=== PATIENT | male | born 1980 | race Hispanic/Latino ===

== ENCOUNTER 2019-02-10 20:50 | Emergency (ER) | payer SELFPAY ==
--- NOTE | 2019-02-10 21:53 | ER ---
Nurse's Notes [facility] Name: Rachid Jensen Age: 39 yrs Sex: Male : 1980 Arrival Date: 02/10/2019 Time: 20:56 Bed 7 Private MD: Diagnosis: Other otitis externa, left ear;Otitis media, unspecified, left ear Presentation: 02/10 21:01 Presenting complaint: states: His left ear hurts and it hurts when he swallows. ed1 Transition of care: patient was not received from another setting of care. Onset of symptoms was February 06, 2019. Risk Assessment: Do you want to hurt yourself or someone else? Patient reports no desire to harm self or others. Initial Sepsis Screen: Does the patient meet any 2 criteria? No. Patient's initial sepsis screen is negative. Does the patient have a suspected source of infection? No. Patient's initial sepsis screen is negative. Care prior to arrival: None. 21:01 Method Of Arrival: Ambulatory ed1 21:01 Acuity: LARA 4 ed1 Triage Assessment: 21:02 General: Appears in no apparent distress. Behavior is calm, cooperative. Pain: ed1 Complains of pain in left ear Pain currently is 9 out of 10 on a pain scale. EENT: Reports pain in left ear when swallowing. Historical: - Allergies: 21:02 No Known Allergies; ed1 - Home Meds: 21:02 metformin 500 mg Oral Tb24 1 tab once daily [Active]; Lisinopril Oral once daily ed1 [Active]; - PMHx: 21:02 Diabetes - NIDDM; Hypertension; ed1 - PSHx: 21:02 None; ed1 - Immunization history:: Adult Immunizations up to date. - Social history:: Smoking status: Patient/guardian denies using tobacco. - Ebola Screening: : Patient negative for fever greater than or equal to 101.5 degrees Fahrenheit, and additional compatible Ebola Virus Disease symptoms Patient denies exposure to infectious person Patient denies travel to an Ebola-affected area in the 21 days before illness onset No symptoms or risks identified at this time. Screenin:05 Abuse screen: Denies threats or abuse. Denies injuries from another. Nutritional cc3 screening: No deficits noted. Tuberculosis screening: No symptoms or risk factors identified. Fall Risk Ambulatory Aid- None/Bed Rest/Nurse Assist (0 pts). Gait- Normal/Bed Rest/Wheelchair (0 pts) Mental Status- Oriented to own ability (0 pts). Assessment: 21:05 General: Appears in no apparent distress. uncomfortable, Behavior is calm, cooperative, cc3 appropriate for age. Pain: Complains of pain in face and left cheek and left ear Quality of pain is described as aching, Pain began 1 week. Neuro: Level of Consciousness is awake, alert, obeys commands, Oriented to person, place, time, situation, Appropriate for age. Cardiovascular: Denies chest pain, Patient's skin is warm and dry. Respiratory: Airway is patent Respiratory effort is even, unlabored, Respiratory pattern is regular, symmetrical. GI: Abdomen is round non-distended. : No signs and/or symptoms were reported regarding the genitourinary system. EENT: Reports pain in face and left cheek and left ear. Derm: Skin is intact, is healthy with good turgor, Skin is dry, Skin is pink, warm \T\ dry. normal, Skin temperature is warm. Musculoskeletal: Circulation, motion, and sensation intact. Range of motion: intact in all extremities. 21:58 Reassessment: Patient appears in no apparent distress at this time. Patient and/or cc3 family updated on plan of care and expected duration. Pain level reassessed. Patient is alert, oriented x 3, equal unlabored respirations, skin warm/dry/pink. SCOTTY Roberts discharged the patient home with prescription given. No IV cannula in situ. Patient left ER vitally stable and ambulatory with his . Patient denies pain at this time. Patient states feeling better. Patient states symptoms have improved. Vital Signs: 21:02 BP 145 / 89; Pulse 73; Resp 18; Temp 98.2; Pulse Ox 97% on R/A; Weight 118.84 kg; ed1 Height 5 ft. 7 in. (170.18 cm); Pain 9/10; 21:02 Body Mass Index 41.03 (118.84 kg, 170.18 cm) ed1 ED Course: 20:56 Patient arrived in ED. mr 21:02 Triage completed. ed1 21:02 Arm band placed on right wrist. ed1 21:03 Hetal Roberts FNP-C is PHCP. kb 21:03 Alexander Wu MD is Attending Physician. kb 21:05 Milvia Lakhani is Primary Nurse. cc3 21:05 Patient has correct armband on for positive identification. Bed in low position. Call cc3 light in reach. Side rails up X 1. Pulse ox on. NIBP on. 21:17 CT completed. Patient moved to CT. Patient moved back from CT. nj 21:31 CT Head Brain wo Cont In Process Unspecified. EDMS 22:00 No provider procedures requiring assistance completed. Patient did not have IV access cc3 during this emergency room visit. Administered Medications: No medications were administered Outcome: 21:52 Discharge ordered by MD. kb 21:58 Patient left the ED. cc3 21:58 Discharged to home ambulatory, with family. cc3 21:58 Condition: stable 21:58 Discharge instructions given to patient, Instructed on discharge instructions, follow up and referral plans. medication usage, Demonstrated understanding of instructions, follow-up care, medications, Prescriptions given X 2. Signatures: Dispatcher [employer] EDMS Hetal Roberts, [employer]CH[employer]IC-Cely Batista Erika, RN RN ed1 Alfonso Petersen Charlene cc3
--- NOTE | 2019-02-10 21:53 | EDPHYS ---
Physician Documentation [facility] Name: Rachid Jensen Age: 39 yrs Sex: Male : 1980 Arrival Date: 02/10/2019 Time: 20:56 Bed 7 Private MD: ED Physician Alexander Wu HPI: 02/10 21:27 This 39 yrs old Male presents to ER via Ambulatory with complaints of Ear Pain.kb 21:27 The patient presents with pain, moderate, swelling. kb 21:28 The complaints affect the left ear. Onset: The symptoms/episode began/occurred 4 day(s) kb ago. Modifying factors: The symptoms are alleviated by nothing, the symptoms are aggravated by touching. Associated signs and symptoms: The patient has no apparent associated signs or symptoms. Severity of symptoms: At their worst the symptoms were moderate in the emergency department the symptoms are unchanged. The patient has not experienced similar symptoms in the past. The patient has not recently seen a physician. Pt c/o ear pain for 4 days. . Historical: - Allergies: 21:02 No Known Allergies; ed1 - Home Meds: 21:02 metformin 500 mg Oral Tb24 1 tab once daily [Active]; Lisinopril Oral once daily ed1 [Active]; - PMHx: 21:02 Diabetes - NIDDM; Hypertension; ed1 - PSHx: 21:02 None; ed1 - Immunization history:: Adult Immunizations up to date. - Social history:: Smoking status: Patient/guardian denies using tobacco. - Ebola Screening: : Patient negative for fever greater than or equal to 101.5 degrees Fahrenheit, and additional compatible Ebola Virus Disease symptoms Patient denies exposure to infectious person Patient denies travel to an Ebola-affected area in the 21 days before illness onset No symptoms or risks identified at this time. ROS: 21:29 Constitutional: Negative for fever, chills, and weight loss, Cardiovascular: Negative kb for chest pain, palpitations, and edema, Respiratory: Negative for shortness of breath, cough, wheezing, and pleuritic chest pain, Abdomen/GI: Negative for abdominal pain, nausea, vomiting, diarrhea, and constipation, MS/Extremity: Negative for injury and deformity, Neuro: Negative for headache, weakness, numbness, tingling, and seizure. 21:29 ENT: Positive for ear pain. 21:29 Skin: Positive for swelling, of the left cheek. Exam: 21:30 Constitutional: This is a well developed, well nourished patient who is awake, alert, kb and in no acute distress. Neck: Trachea midline, no thyromegaly or masses palpated, and no cervical lymphadenopathy. Supple, full range of motion without nuchal rigidity, or vertebral point tenderness. No Meningismus. Chest/axilla: Normal chest wall appearance and motion. Nontender with no deformity. No lesions are appreciated. Cardiovascular: Regular rate and rhythm with a normal S1 and S2. No gallops, murmurs, or rubs. Normal PMI, no JVD. No pulse deficits. Respiratory: Lungs have equal breath sounds bilaterally, clear to auscultation and percussion. No rales, rhonchi or wheezes noted. No increased work of breathing, no retractions or nasal flaring. Abdomen/GI: Soft, non-tender, with normal bowel sounds. No distension or tympany. No guarding or rebound. No evidence of tenderness throughout. Skin: Warm, dry with normal turgor. Normal color with no rashes, no lesions, and no evidence of cellulitis. MS/ Extremity: Pulses equal, no cyanosis. Neurovascular intact. Full, normal range of motion. Neuro: Awake and alert, GCS 15, oriented to person, place, time, and situation. Cranial nerves II-XII grossly intact. Motor strength 5/5 in all extremities. Sensory grossly intact. Cerebellar exam normal. Normal gait. 21:30 Head/face: Noted is no obvious of injury or deformity except swelling, that is moderate, of the left cheek, tenderness, that is moderate. 21:30 ENT: External ear(s): are unremarkable, Ear canal(s): purulent discharge, that is moderate, in the left canal, TM's: erythema. Vital Signs: 21:02 BP 145 / 89; Pulse 73; Resp 18; Temp 98.2; Pulse Ox 97% on R/A; Weight 118.84 kg; ed1 Height 5 ft. 7 in. (170.18 cm); Pain 9/10; 21:02 Body Mass Index 41.03 (118.84 kg, 170.18 cm) ed1 MDM: 21:05 Patient medically screened. kb 21:29 Data reviewed: vital signs, nurses notes. Data interpreted: Pulse oximetry: on room air kb is 97 %. Interpretation: normal. 21:51 Counseling: I had a detailed discussion with the patient and/or guardian regarding: the kb historical points, exam findings, and any diagnostic results supporting the discharge/admit diagnosis, radiology results, the need for outpatient follow up, a family practitioner, to return to the emergency department if symptoms worsen or persist or if there are any questions or concerns that arise at home. 02/10 21:12 Order name: CT Head Brain wo Cont kb Administered Medications: No medications were administered Disposition: 02/11 04:13 Co-signature as Attending Physician, Alexander Wu MD I agree with the assessment and tw4 plan of care. Disposition: 02/10/19 21:52 Discharged to Home. Impression: Other otitis externa, left ear, Otitis media, unspecified, left ear. - Condition is Stable. - Discharge Instructions: Ear Drops, Adult, Otitis Externa, [id number], Otitis Media, Adult, [id number]. - Prescriptions for Amoxicillin 875 mg Oral Tablet - take 1 tablet by ORAL route every 12 hours for 10 days; 20 tablet. Ciprodex 0.3- 0.1 % Otic Drops, Suspension - instill 4 drop by OTIC route every 12 hours for 7 days , for ears ONLY; 1 Container. - Medication Reconciliation Form, Thank You Letter, Antibiotic Education, Prescription Opioid Use form. - Follow up: Emergency Department; When: As needed; Reason: Worsening of condition. Follow up: Private Physician; When: 2 - 3 days; Reason: Recheck today's complaints, Continuance of care, Re-evaluation by your physician. Signatures: Dispatcher [employer] EDNH Hetal Roberts, Lazara Andrew RN RN ed1 Alexander Wu MD MD tw4 Milvia Lakhani cc3 Corrections: (The following items were deleted from the chart) 02/10 21:58 21:52 02/10/2019 21:52 Discharged to Home. Impression: Other otitis externa, left ear; cc3 Otitis media, unspecified, left ear. Condition is Stable. Forms are Medication Reconciliation Form, Thank You Letter, Antibiotic Education, Prescription Opioid Use. Follow up: Emergency Department; When: As needed; Reason: Worsening of condition. Follow up: Private Physician; When: 2 - 3 days; Reason: Recheck today's complaints, Continuance of care, Re-evaluation by your physician. kb
--- NOTE | 2019-02-11 11:36 | RAD REPORT ---
EXAM DESCRIPTION: CT - Head Brain Wo Cont - 02/11/2019 4:25 am CLINICAL HISTORY: 39 years Male, r/o mastoiditis TECHNIQUE: 5 mm axial images were obtained along with 3 mm reformatted coronal and sagittal images. This exam was performed according to our departmental dose-optimization program, which includes autom ated exposure control, adjustment of the mA and/or kV according to patient size and/or use of iterati ve reconstruction technique. COMPARISON: None. FINDINGS: No acute abnormal extracerebral fluid collections are demonstrated. The cortical sulci, ventricles, and cisterns are within normal limits. There are no areas of altered attenuation identified to suggest acute hemorrhage, infarction, or mass lesion. The visualized portions of the paranasal sinuses and mastoid air cells are clear. IMPRESSION: 1. Normal study. Electronically signed by: Matt Dixon MD 02/10/2019 9:37 PM CDT Due to temporary technical issues with the PACS/Fluency reporting system, reports are being signed by the in house radiologist as a courtesy to ensure prompt reporting. The interpreting radiologist is f ully responsible for the content of the report.
== END 2019-02-10 21:58 | disposition home or self-care (01) ==
LOC: ER 20:50
DX: H60.92 Unspecified otitis externa, left ear (principal); H66.92 Otitis media, unspecified, left ear; I10 Essential (primary) hypertension; E11.9 Type 2 diabetes mellitus without complications
CPT/HCPCS: 70450; 99284

== ENCOUNTER 2019-04-10 20:55 | Emergency (ER) | payer SELFPAY ==
[2019-04-10] MEDS ORDERED: cloNIDine HCl 0.1 MG TAB ONE (21:56)
[2019-04-10 22:08] LABS: Absolute Lymphocytes (CBC) 3.1 K/uL (0.7-4.9); Basophils % 0.6 % (0-1.3); Hematocrit 43.5 % (39.6-49.0); RBC Red Blood Cell Count 5.38 M/uL (4.33-5.43)
[2019-04-10 22:18] LABS: BUN Blood Urea Nitrogen 14 mg/dL (7-18); Bicarbonate 29 mmol/L (21-32); Glucose Level 158 mg/dL (74-106); Potassium 3.8 mmol/L (3.5-5.1); Sodium Level 140 mmol/L (136-145)
--- NOTE | 2019-04-10 22:27 | ER ---
Nurse's Notes [facility] Name: Rachid Jensen Age: 39 yrs Sex: Male : 1980 Arrival Date: 04/10/2019 Time: 20:56 Bed 17 Private MD: Diagnosis: Essential (primary) hypertension Presentation: 04/10 21:07 Presenting complaint: Patient states: Headache, head pressure that began about 2 hours lp1 ago; Patient states checking BP when he didn't feel good and BP of 185/111; Denies any chest pain, N/V. Transition of care: patient was not received from another setting of care. Onset of symptoms was April 10, 2019 at 19:00. Risk Assessment: Do you want to hurt yourself or someone else? Patient reports no desire to harm self or others. Initial Sepsis Screen: Does the patient meet any 2 criteria? No. Patient's initial sepsis screen is negative. Does the patient have a suspected source of infection? No. Patient's initial sepsis screen is negative. Care prior to arrival: None. 21:07 Method Of Arrival: Ambulatory lp1 21:07 Acuity: LARA 3 lp1 Triage Assessment: 21:05 General: Appears in no apparent distress. comfortable, Behavior is calm, cooperative, cc3 appropriate for age. Pain: Complains of pain in head Quality of pain is described as pressure. Historical: - Allergies: 21:10 No Known Allergies; lp1 - Home Meds: 21:10 lisinopril 25 mg Oral once daily [Active]; metformin 500 mg Oral Tb24 1 tab once daily lp1 [Active]; - PMHx: 21:10 Diabetes - NIDDM; Hypertension; lp1 - PSHx: 21:10 None; lp1 - Immunization history:: Adult Immunizations up to date. - Social history:: Smoking status: Patient/guardian denies using tobacco. - Ebola Screening: : No symptoms or risks identified at this time. Screenin:05 Abuse screen: Denies threats or abuse. Denies injuries from another. Nutritional cc3 screening: No deficits noted. Tuberculosis screening: No symptoms or risk factors identified. Fall Risk Ambulatory Aid- None/Bed Rest/Nurse Assist (0 pts). Gait- Normal/Bed Rest/Wheelchair (0 pts) Mental Status- Oriented to own ability (0 pts). Assessment: 21:05 General: Appears in no apparent distress. comfortable, Behavior is calm, cooperative, cc3 appropriate for age. Pain: Complains of pain in back of head Quality of pain is described as pressure. Neuro: Level of Consciousness is awake, alert, obeys commands, Oriented to person, place, time, situation, Appropriate for age. Cardiovascular: Denies chest pain, Capillary refill < 3 seconds Patient's skin is warm and dry. Respiratory: Airway is patent Respiratory effort is even, unlabored, Respiratory pattern is regular, symmetrical. GI: Abdomen is round non-distended. : No signs and/or symptoms were reported regarding the genitourinary system. EENT: No signs and/or symptoms were reported regarding the EENT system. Derm: Skin is intact, is healthy with good turgor, Skin is pink, warm \T\ dry. normal. Musculoskeletal: Circulation, motion, and sensation intact. Range of motion: intact in all extremities. 22:17 Reassessment: Patient appears in no apparent distress at this time. Patient and/or cc3 family updated on plan of care and expected duration. Pain level reassessed. Patient is alert, oriented x 3, equal unlabored respirations, skin warm/dry/pink. 22:45 Reassessment: Patient appears in no apparent distress at this time. Patient and/or cc3 family updated on plan of care and expected duration. Pain level reassessed. Patient is alert, oriented x 3, equal unlabored respirations, skin warm/dry/pink. SELENA Hurt discharged the patient home with prescriptions given. No IV cannula in situ. Patient left ER vitally stable and ambulatory with his . No valuables left in the patient's room. Patient denies pain at this time. Patient states feeling better. Patient states symptoms have improved. Vital Signs: 21:09 BP 185 / 80; Pulse 69; Resp 18; Temp 98.6(O); Pulse Ox 98% on R/A; Weight 120.2 kg; lp1 Height 5 ft. 9 in. (175.26 cm); Pain 8/10; 21:30 BP 170 / 87; Pulse 66; Resp 17 S; Pulse Ox 98% on R/A; cc3 22:17 BP 164 / 91; Pulse 67; Resp 17 S; Pulse Ox 97% on R/A; cc3 22:40 BP 155 / 80; Pulse 65; Resp 16 S; Pulse Ox 98% on R/A; cc3 21:09 Body Mass Index 39.13 (120.20 kg, 175.26 cm) lp1 ED Course: 20:56 Patient arrived in ED. es 21:05 Milvia Lakhani is Primary Nurse. cc3 21:05 Patient has correct armband on for positive identification. Placed in gown. Bed in low cc3 position. Call light in reach. Side rails up X 1. gambling monitor on. Pulse ox on. NIBP on. 21:09 Triage completed. lp1 21:09 Arm band placed on left wrist. lp1 21:19 Luke Hurt PA is PHCP. jr8 21:19 Maurizio Chacon MD is Attending Physician. jr8 21:56 Initial lab(s) drawn, by wi, sent to lab. labs drawn via 21-gauge needle and syringe jp3 from pt [facility]. Patient maintains SpO2 saturation greater than 95% on room air. 21:57 Basic Metabolic Panel Sent. jp3 21:57 CBC with Diff Sent. jp3 22:45 No provider procedures requiring assistance completed. Patient did not have IV access cc3 during this emergency room visit. Administered Medications: 21:55 Drug: cloNIDine 0.1 mg Route: PO; cc3 22:17 Follow up: Response: No adverse reaction; Blood pressure is lowered cc3 Point of Care Testing: Blood Glucose: 21:09 Blood Glucose: 163 mg/dL; cc3 Ranges: Outcome: 22:26 Discharge ordered by . jr8 22:45 Discharged to home ambulatory, with family. cc3 22:45 Condition: stable 22:45 Discharge instructions given to patient, family, Instructed on discharge instructions, follow up and referral plans. medication usage, Demonstrated understanding of instructions, follow-up care, medications, Prescriptions given X 2. 22:51 Patient left the ED. cc3 Signatures: Fany Sun Laura, RN RN lp1 Luke Hurt PA PA jr8 Gonzalez Gilbert jp3 Milvia Lakhani cc3
--- NOTE | 2019-04-10 22:27 | EDPHYS ---
Physician Documentation [facility] Name: Rachid Jensen Age: 39 yrs Sex: Male : 1980 Arrival Date: 04/10/2019 Time: 20:56 Bed 17 Private MD: ED Physician Maurizio Chacon HPI: 04/10 22:14 This 39 yrs old Male presents to ER via Ambulatory with complaints of High jr8 Blood Pressure. 22:14 Onset: The symptoms/episode began/occurred acutely, today. Modifying factors: The jr8 symptoms are aggravated by activity, The symptoms are alleviated by remaining still. Associated signs and symptoms: Pertinent positives: headache. Severity of symptoms: At its worst the blood pressure was mild, in the emergency department the blood pressure is unchanged. The patient has not experienced similar symptoms in the past. The patient has not recently seen a physician. Patient with history of HTN. Stated that his BP was much more elevated then normal. Started to have head pressure. Ran out of BP medication today and wants to make sure he will be ok to leave out of town tomorrow. Stated that his normal BP medications helps but never gets his BP to a normal level . Historical: - Allergies: 21:10 No Known Allergies; lp1 - Home Meds: 21:10 lisinopril 25 mg Oral once daily [Active]; metformin 500 mg Oral Tb24 1 tab once daily lp1 [Active]; - PMHx: 21:10 Diabetes - NIDDM; Hypertension; lp1 - PSHx: 21:10 None; lp1 - Immunization history:: Adult Immunizations up to date. - Social history:: Smoking status: Patient/guardian denies using tobacco. - Ebola Screening: : No symptoms or risks identified at this time. ROS: 22:14 Eyes: Negative for injury, pain, redness, and discharge, ENT: Negative for injury, jr8 pain, and discharge, Neck: Negative for injury, pain, and swelling, Cardiovascular: Negative for chest pain, palpitations, and edema, Respiratory: Negative for shortness of breath, cough, wheezing, and pleuritic chest pain, Abdomen/GI: Negative for abdominal pain, nausea, vomiting, diarrhea, and constipation, Back: Negative for injury and pain, MS/Extremity: Negative for injury and deformity, Skin: Negative for injury, rash, and discoloration. 22:14 Neuro: Positive for headache, Negative for altered mental status, dizziness, gait disturbance, hearing loss, loss of consciousness, numbness, seizure activity, speech changes, syncope, near syncope, tingling, tinnitus, tremor, visual changes, weakness. Exam: 22:14 Eyes: Pupils equal round and reactive to light, extra-ocular motions intact. Lids and jr8 lashes normal. Conjunctiva and sclera are non-icteric and not injected. Cornea within normal limits. Periorbital areas with no swelling, redness, or edema. ENT: Nares patent. No nasal discharge, no septal abnormalities noted. Tympanic membranes are normal and external auditory canals are clear. Oropharynx with no redness, swelling, or masses, exudates, or evidence of obstruction, uvula midline. Mucous membranes moist. Neck: Trachea midline, no thyromegaly or masses palpated, and no cervical lymphadenopathy. Supple, full range of motion without nuchal rigidity, or vertebral point tenderness. No Meningismus. Cardiovascular: Regular rate and rhythm with a normal S1 and S2. No gallops, murmurs, or rubs. Normal PMI, no JVD. No pulse deficits. Respiratory: Lungs have equal breath sounds bilaterally, clear to auscultation and percussion. No rales, rhonchi or wheezes noted. No increased work of breathing, no retractions or nasal flaring. Abdomen/GI: Soft, non-tender, with normal bowel sounds. No distension or tympany. No guarding or rebound. No evidence of tenderness throughout. Back: No spinal tenderness. No costovertebral tenderness. Full range of motion. Skin: Warm, dry with normal turgor. Normal color with no rashes, no lesions, and no evidence of cellulitis. MS/ Extremity: Pulses equal, no cyanosis. Neurovascular intact. Full, normal range of motion. Neuro: Awake and alert, GCS 15, oriented to person, place, time, and situation. Cranial nerves II-XII grossly intact. Motor strength 5/5 in all extremities. Sensory grossly intact. Cerebellar exam normal. Normal gait. Vital Signs: 21:09 BP 185 / 80; Pulse 69; Resp 18; Temp 98.6(O); Pulse Ox 98% on R/A; Weight 120.2 kg; lp1 Height 5 ft. 9 in. (175.26 cm); Pain 8/10; 21:30 BP 170 / 87; Pulse 66; Resp 17 S; Pulse Ox 98% on R/A; cc3 22:17 BP 164 / 91; Pulse 67; Resp 17 S; Pulse Ox 97% on R/A; cc3 22:40 BP 155 / 80; Pulse 65; Resp 16 S; Pulse Ox 98% on R/A; cc3 21:09 Body Mass Index 39.13 (120.20 kg, 175.26 cm) lp1 MDM: 21:19 Patient medically screened. jr8 22:24 Data reviewed: vital signs, nurses notes, lab test result(s), EKG, and as a result, I jr8 will discharge patient. Data interpreted: Pulse oximetry: on room air is 97 %. Interpretation: normal. Counseling: I had a detailed discussion with the patient and/or guardian regarding: the historical points, exam findings, and any diagnostic results supporting the discharge/admit diagnosis, lab results, the need for outpatient follow up, a family practitioner, to return to the emergency department if symptoms worsen or persist or if there are any questions or concerns that arise at home. Response to treatment: the patient's symptoms have markedly improved after treatment. 04/10 21:47 Order name: CBC with Diff; Complete Time: 22:13 8 04/10 21:47 Order name: Basic Metabolic Panel; Complete Time: 22:24 jr8 04/10 21:47 Order name: EKG - Nurse/Tech; Complete Time: 21:53 jr8 Administered Medications: 21:55 Drug: cloNIDine 0.1 mg Route: PO; cc3 22:17 Follow up: Response: No adverse reaction; Blood pressure is lowered cc3 Point of Care Testing: Blood Glucose: 21:09 Blood Glucose: 163 mg/dL; cc3 Ranges: Critical Glucose Levels:Adult <50 mg/dl or >400 mg/dl <40 mg/dl or >180 mg/dl Disposition: 04/10/19 22:26 Discharged to Home. Impression: Essential (primary) hypertension. - Condition is Stable. - Discharge Instructions: Hypertension. - Prescriptions for amlodipine 5 mg Oral tablet - take 1 tablet by ORAL route once daily; 30 tablet. Lisinopril- Hydrochlorothiazide 20-25 mg Oral Tablet - take 1 tablet by ORAL route once daily; 20 tablet. - Medication Reconciliation Form, Thank You Letter, Antibiotic Education, Prescription Opioid Use form. - Follow up: Private Physician; When: 2 - 3 days; Reason: Recheck today's complaints, Continuance of care, Re-evaluation by your physician. - Problem is new. - Symptoms have improved. Addendum: 04/12/2019 09:20 Co-signature as Attending Physician, Maurizio Chacon MD I agree with the assessment and c phan plan of care. Signatures: Dispatcher [employer] EDNE Maurizio Chacon MD MD cha Pena, Laura RN RN lp1 Luke Hurt PA PA jr8 Milvia Lakhani cc3 Corrections: (The following items were deleted from the chart) 04/10 22:51 22:26 04/10/2019 22:26 Discharged to Home. Impression: Essential (primary) cc3 hypertension. Condition is Stable. Forms are Medication Reconciliation Form, Thank You Letter, Antibiotic Education, Prescription Opioid Use. Follow up: Private Physician; When: 2 - 3 days; Reason: Recheck today's complaints, Continuance of care, Re-evaluation by your physician. Problem is new. Symptoms have improved. jr8
--- NOTE | 2019-04-12 07:50 | EKG ---
Test Date: 2019-04-10 Test Time: 21:51:39 Laser Technician: OMKAR MEASUREMENT RESULTS: Intervals: Rate: 68 DE: 172 QRSD: 86 QT: 384 QTc: 408 [place]: P: 42 DE: 172 QRS: 27 T: 29 INTERPRETIVE STATEMENTS: Normal sinus rhythm Normal ECG No previous ECG available for comparison Electronically Signed On 04-12-19 07:48:57 CDT by Macario Johnson
== END 2019-04-10 22:51 | disposition home or self-care (01) ==
LOC: ER 20:55
DX: I10 Essential (primary) hypertension (principal); E11.9 Type 2 diabetes mellitus without complications
CPT/HCPCS: 36415; 80048; 82962; 85025; 93005; 99285